=== PATIENT | female | born 1985 | race Caucasian/White ===

== ENCOUNTER 2016-07-28 18:43 | Emergency (ER) | payer OTHER ==
[2016-07-28 18:57] VITALS: BP 134/83; PULSE 92; TEMP 98.2; BMI 28.8
[2016-07-28 19:52] LABS: URINE APPEARANCE CLEAR; URINE BILIRUBIN NEGATIVE (NEGATIVE); URINE BLOOD NEGATIVE (NEGATIVE); URINE COLOR LTYELLOW; URINE GLUCOSE (UA) NEGATIVE (NEGATIVE); URINE KETONE NEGATIVE (NEGATIVE); URINE LEUK ESTERASE NEGATIVE (NEGATIVE); URINE NITRITE NEGATIVE (NEGATIVE); URINE PROTEIN NEGATIVE (NEGATIVE); URINE UROBILINOGEN NEGATIVE E.U./dl (0.2-1.0)
--- NOTE | 2016-07-28 19:53 | PDOC ---
History of Present Illness <Lidia Orosco - Last Filed: 07/28/16 22:53> - History of Present Illness Initial Comments: 07/28/16 20:24 The patient is a 30 year old female with no past medical hx who presents to the ED complaining of abdominal cramping, nausea, and dizziness for a few days. The patient reports her LMP was June 27. The patient denies any vomiting, diarrhea, fever, chills Surgical: Left ovarian cyst removal, appendectomy PCP: None <Concepción Ren - Last Filed: 07/28/16 23:00> - General Chief Complaint: Pain, Acute Stated Complaint: DIZZINESS Time Seen by Provider: 07/28/16 19:20 Past History - Past Medical History Other medical history: PATIENT DENIES PAST MEDICAL HISTORY - Surgical History Abdominal Surgery: Yes (CYST REMOVED FROM L OVARY) Appendectomy: Yes - Psycho/Social/Smoking Cessation Hx Anxiety: No Suicidal Ideation: No Smoking History: Never smoked Hx Alcohol Use: No Drug/Substance Use Hx: No <Lidia Orosco - Last Filed: 07/28/16 22:53> <Concepción Ren - Last Filed: 07/28/16 23:00> - Past Medical History Allergies/Adverse Reactions: Allergies Allergy/AdvReac Type Severity Reaction Status Date / Time No Known Allergies Allergy Verified 07/28/16 18:57 Home Medications: Ambulatory Orders NK [No Known Home Medication] 07/28/16 Review of Systems - Review of Systems Able to Perform ROS?: Yes Comments:: 07/28/16 20:25 CONSTITUTIONAL: Absent: fever, no chills, no fatigue EYES: Absent: visual changes ENT: Absent: ear pain, no sore throat CARDIOVASCULAR: Absent: chest pain, no palpitations RESPIRATORY: Absent: cough, no SOB GI: +Nausea, abdominal cramping. Absent: abdominal pain, no vomiting, no constipation, no diarrhea GENITOURINARY: Absent: dysuria, no frequency, no hematuria MUSCULOSKELETAL: Absent: back pain, no arthralgia, no myalgia SKIN: Absent: rash NEURO: +Dizziness. Absent: headache <Concepción Ren - Last Filed: 07/28/16 23:00> *Physical Exam - Vital Signs Last Vital Signs Temp Pulse Resp BP Pulse Ox 98.2 F 92 H 18 134/83 100 04/18/17 18:54 07/28/16 18:54 07/28/16 18:54 07/28/16 18:54 07/28/16 18:54 <Lidia Orosco - Last Filed: 07/28/16 22:53> - Vital Signs Last Vital Signs Temp Pulse Resp BP Pulse Ox 98.2 F 92 H 18 134/83 100 07/28/16 18:54 07/28/16 18:54 07/28/16 18:54 07/28/16 18:54 07/28/16 18:54 - Physical Exam Comments: 07/28/16 20:25 GENERAL: Well-appearing, well-nourished. No apparent distress. HEENT: Normocephalic, atraumatic. PERRL, EOM intact. CARDIOVASCULAR: Normal S1, S2. Regular rate and rhythm. PULMONARY: Clear to auscultation bilaterally. ABDOMEN: Soft, non-distended, non-tender. EXTREMITIES: Normal ROM in all four extremities. No gross deformities. SKIN: Warm, dry. No rash NEUROLOGICAL: No focal neurological deficits. <Concepción Ren - Last Filed: 07/28/16 23:00> ED Treatment Course - LABORATORY CBC & Chemistry Diagram: 07/28/16 19:54 <Lidia Orosco - Last Filed: 07/28/16 22:53> - LABORATORY CBC & Chemistry Diagram: 07/28/16 19:54 - ADDITIONAL ORDERS Additional order review: Laboratory Results 07/28/16 19:36 Urine Color Ltyellow Urine Appearance Clear Urine pH 6.0 Ur Specific [place] 1.018 Urine Protein Negative Urine Glucose (UA) Negative Urine Ketones Negative Urine Blood Negative Urine Nitrite Negative Urine Bilirubin Negative Urine Urobilinogen Negative Ur Leukocyte Esterase Negative Urine HCG, Qual Positive - RADIOLOGY Radiograph Interpretation: 07/28/16 23:00 US/TRANSVAGINAL US PREG Transvaginal sonogram Comparison studies: None Clinical history: Left adnexal pain with beta hCG 536 Last menstrual period June 27, 2016 No intrauterine gestational sac Thickened endometrial stripe 1.9 cm with normal images through the region of cervix and a small amount of free fluid in the posterior cul-de-sac Uterus measures 9 x 3 x 4 cm with no fibroids Right ovary measures 3 x 2 x 1 cm with normal Doppler flow Left ovary measures 2.4 x 1.4 x 1.6 cm with normal Doppler flow No adnexal masses identified Normal region of cervix and vagina including urinary bladder Thickened endometrium with no gestational sac identified, the possibility of an early is not excluded Impression: No intrauterine gestational sac, the possibility of ectopic is not completely excluded No adnexal masses with a small amount of free fluid in the posterior cul-de-sac No fibroids identified Reported By: Venancio Campos MD 07/28/16 2241 <Concepción Ren - Last Filed: 07/28/16 23:00> *DC/Admit/Observation/Transfer <Lidia Orosco - Last Filed: 07/28/16 22:53> - Attestations Scribe Attestion: 07/28/16 20:24 Documentation prepared by Concepción Ren, acting as associate medical director for Lidia Orosco MD/DO. <Concepción Ren - Last Filed: 07/28/16 23:00> Diagnosis at time of Disposition: Early stage of - Discharge Dispostion Disposition: HOME Condition at time of disposition: Stable - Patient Instructions Printed Discharge Instructions: DI for -- Discomforts and Remedies Additional Instructions: please have a repeat bhcg and ultrasound in 1 week
[2016-07-28 20:27] LABS: BASOPHIL 0.2 % (0-2.0); MEAN CELL VOLUME 87.7 fl (80-96); MEAN PLT VOLUME 9.5 fl (7.5-11.1); NEUTROPHILS 71.8 % (42.8-82.8); PLATELET COUNT 255 K/MM3 (134-434); RDW 14.9 % (11.6-15.6); WHITE BLOOD COUNT 13.5 K/mm3 (4.0-10.0)
== END 2016-07-28 23:19 | disposition home or self-care (01) ==
LOC: JER 18:43
DX: O26.891 Other specified pregnancy related conditions, first trimester (principal); R42 Dizziness and giddiness; Z3A.01 Less than 8 weeks gestation of pregnancy
CPT/HCPCS: 36415; 76817-TC; 81003; 84702; 84703; 85025; 86850; 86900; 86901; 99283-25

== ENCOUNTER 2016-09-06 09:55 | Emergency (ER) | payer OTHER ==
[2016-09-06 10:04] VITALS: BMI 29.4
--- NOTE | 2016-09-06 10:49 | PDOC ---
History of Present Illness - General Chief Complaint: Vaginal Bleeding Stated Complaint: VAGINAL BLEEDING, 9 WKS Time Seen by Provider: 09/06/16 10:17 History Source: Patient Exam Limitations: No Limitations - History of Present Illness Travel History: Yes Initial Comments: 09/06/16 10:38 Patient states had some mild left lower quadrant cramping yesterday that was intermittent and spontaneous resolved. Woke up this morning and noted some brown vaginal drainage on toilet tissue, and second episode to bathroom and noted some spotting of red blood but not bright red blood clots. Patient denies fever, denies exercise changes or recent trauma, is not currently working , bowels and bladder are working normally. No nausea or vomiting. Was an unplanned however couple have been trying for some years. 1 para 0, LMP was june 27 Timing/Duration: reports: getting worse Quality: reports: mild, cramping Abdominal Pain Onset Location: reports: suprapubic Pain Radiation: reports: no radiation Activities at Onset: reports: none Past History - Travel Traveled outside of the country in the last 30 days: No Close contact w/someone who was outside of country & ill: No - Past Medical History Allergies/Adverse Reactions: Allergies Allergy/AdvReac Type Severity Reaction Status Date / Time No Known Allergies Allergy Verified 09/06/16 10:01 Home Medications: Ambulatory Orders Ibuprofen [Motrin -] 600 mg PO TID #30 tablet 09/07/16 Methylergonovine Maleate [Methergine] 0.2 mg PO QID #3 tablet 09/07/16 NK [No Known Home Medication] 09/07/16 Other medical history: none - Surgical History Abdominal Surgery: Yes (CYST REMOVED FROM L OVARY) Appendectomy: Yes - Psycho/Social/Smoking Cessation Hx Anxiety: No Suicidal Ideation: No Smoking History: Never smoked Have you smoked in the past 12 months: No Information on smoking cessation initiated: No Hx Alcohol Use: No Drug/Substance Use Hx: No Substance Use Type: None Review of Systems - Review of Systems Able to Perform ROS?: Yes Is the patient limited Bengali proficient: Yes Constitutional: Yes: Symptoms Reported, See HPI, Malaise. No: Chills, Fever, Loss of Appetite HEENTM: No: Symptoms Reported Respiratory: No: Symptoms reported ABD/GI: Yes: Nausea. No: Symptoms Reported, Diarrhea Musculoskeletal: Yes: See HPI. No: Symptoms Reported Integumentary: Yes: See HPI. No: Symptoms Reported All Other Systems: Reviewed and Negative *Physical Exam - Vital Signs Last Vital Signs Temp Pulse Resp BP Pulse Ox 97.8 F 66 18 115/70 100 09/06/16 10:02 09/06/16 10:02 09/06/16 10:02 09/06/16 10:02 09/06/16 10:02 - Physical Exam General Appearance: Yes: Nourished, Appropriately Dressed, Apparent Distress HEENT: positive: [place], Normal ENT Inspection, Normal Voice, TMs Normal, Pharynx Normal Neck: positive: Supple. negative: Tender, Lymphadenopathy (R), Lymphadenopathy (L) Respiratory/Chest: positive: Lungs Clear, Normal Breath Sounds Cardiovascular: positive: Regular Rhythm, Regular Rate Female Pelvic Exam: positive: normal external exam, discharge (dark brown/red drainage noted, not profuse,) Gastrointestinal/Abdominal: positive: Normal Bowel Sounds, Soft, Tenderness ( mild suprapubic tenderness, round or guarding). negative: Tender, Guarding, Rebound Musculoskeletal: positive: Normal Inspection. negative: CVA Tenderness Extremity: positive: Normal Capillary Refill Integumentary: positive: Normal Color, Dry, Warm Neurologic: positive: braiding machine tender II-XII NML intact, Fully Oriented, Alert, Normal Mood/ Affect, Normal Response, Motor Strength 5/5 ED Treatment Course - LABORATORY CBC & Chemistry Diagram: 09/06/16 10:40 - RADIOLOGY Radiology Studies Ordered: Category Date Time Status <14WKS US [US] Stat Ultrasound 09/06/16 10:35 Ordered Progress Note - Progress Note Progress Note: Pregnancies with vaginal spotting/bleeding will perform some labs and ultrasound rule out missed AB Medical Decision Making - Medical Decision Making 09/08/16 12:18 Ultrasound reveals intrauterine yolk sac, no embryonic pole at this time. Patient was advised to follow-up with RECORDS OFFICER for repeat ultrasound and beta hCG testing as numbers were quite low for a six-week . Understands to return to emergency department for worsening bleeding, fevers, cramping or other problems. 09/08/16 12:19 *DC/Admit/Observation/Transfer Diagnosis at time of Disposition: Early stage of - Discharge Dispostion Disposition: HOME Condition at time of disposition: Stable Admit: No - Referrals Referrals: STAFF,NOT ON [Primary Care Provider] - - Patient Instructions Printed Discharge Instructions: DI for Abdominal Pain -- Early Additional Instructions: Rest, drink lots of fluids: Teas, water, soups Avoid contact with others until fevers and symptoms resolved Lots of handwashing and good hygiene Continue [id number] medications for symptomatic relief Tylenol for fever and pain Followup with private physician in one week for repeat urinalysis/reevaluation Return to emergency department for worsened symptoms, fevers, dehydration Print Language: MARTINIQUAIS - Post Discharge Activity Work/School Note: Back to Work
[2016-09-06 10:51] LABS: BASOPHIL 0.6 % (0-2.0); EOSINOPHIL 1.3 % (0-4.5); MCH 29.3 pg (25.7-33.7); MCHC 33.3 g/dl (32.0-36.0); MEAN CELL VOLUME 87.9 fl (80-96); MEAN PLT VOLUME 8.6 fl (7.5-11.1); NEUTROPHILS 70.8 % (42.8-82.8); PLATELET COUNT 249 K/MM3 (134-434); RDW 14.4 % (11.6-15.6)
[2016-09-06 10:52] LABS: URINE APPEARANCE CLEAR; URINE BILIRUBIN NEGATIVE (NEGATIVE); URINE BLOOD 2+ (NEGATIVE); URINE COLOR STRAW; URINE GLUCOSE (UA) NEGATIVE (NEGATIVE); URINE KETONE NEGATIVE (NEGATIVE); URINE LEUK ESTERASE TRACE (NEGATIVE); URINE NITRITE NEGATIVE (NEGATIVE); URINE PROTEIN NEGATIVE (NEGATIVE); URINE UROBILINOGEN NEGATIVE E.U./dl (0.2-1.0)
[2016-09-06 11:11] LABS: URINE MUCUS RARE; URINE RBC 39 /hpf (0-3); URINE WBC 2 /hpf (3-5)
[2016-09-06 14:32] VITALS: BP 108/78; PULSE 89; TEMP 98.4
== END 2016-09-06 14:32 | disposition home or self-care (01) ==
LOC: JER 09:55
DX: O26.851 Spotting complicating pregnancy, first trimester (principal); R10.2 Pelvic and perineal pain; Z3A.09 9 weeks gestation of pregnancy
CPT/HCPCS: 36415; 76801-TC; 81003; 81015; 84702; 85025; 86850; 86900; 86901; 99283-25

== ENCOUNTER 2016-09-06 22:56 | Emergency (ER) | payer OTHER ==
[2016-09-06 23:03] VITALS: BMI 29.5
--- NOTE | 2016-09-06 23:27 | PDOC ---
History of Present Illness - General History Source: Patient Exam Limitations: No Limitations - History of Present Illness Initial Comments: 09/06/16 23:59 The patient is a 31 year old female, 6 weeks (), with no significant past medical history who presents to the ED with complaints of vaginal bleeding since earlier today. The patient was recently seen in the ED earlier today for light vaginal bleeding. She states around 8 pm tonight, she started bleeding heavily. She reports large blood clots and lower quadrant pain. Denies fever or chills. Denies nausea, vomiting, or diarrhea. Denies exercise changes or recent trauma. Changes in urinary output. <Dariusz Escobedo - Last Filed: 09/06/16 23:59> <Marianna Landrum - Last Filed: 09/07/16 04:58> - General Chief Complaint: Vaginal Bleeding Stated Complaint: VAGINAL BLEED Time Seen by Provider: 09/06/16 23:26 Past History <Dariusz Escobedo - Last Filed: 09/06/16 23:59> - Surgical History Abdominal Surgery: Yes (CYST REMOVED FROM L OVARY) Appendectomy: Yes - Reproductive History (#): 1 Para: 0 - Immunization History Immunization Up to Date: Yes - Psycho/Social/Smoking Cessation Hx Anxiety: No Suicidal Ideation: No Smoking History: Never smoked Have you smoked in the past 12 months: No Information on smoking cessation initiated: No Hx Alcohol Use: No Drug/Substance Use Hx: No Substance Use Type: None <Marianna Landrum - Last Filed: 09/07/16 04:58> - Past Medical History Allergies/Adverse Reactions: Allergies Allergy/AdvReac Type Severity Reaction Status Date / Time No Known Allergies Allergy Verified 09/06/16 23:03 Home Medications: Ambulatory Orders Ibuprofen [Motrin -] 600 mg PO TID #30 tablet 09/07/16 Methylergonovine Maleate [Methergine] 0.2 mg PO QID #3 tablet 09/07/16 NK [No Known Home Medication] 09/07/16 Review of Systems - Review of Systems Able to Perform ROS?: Yes Comments:: 09/07/16 00:00 CONSTITUTIONAL: Absent: fever, chills, diaphoresis, generalized weakness, malaise, loss of appetite HEENT: Absent: rhinorrhea, nasal congestion, throat pain, throat swelling, difficulty swallowing, mouth swelling, ear pain, eye pain, visual Changes CARDIOVASCULAR: Absent: chest pain, syncope, palpitations, irregular heart rate, lightheadedness , peripheral edema RESPIRATORY: Absent: cough, shortness of breath, dyspnea with exertion, orthopnea, wheezing, stridor, hemoptysis GASTROINTESTINAL: + abdominal cramping Absent: abdominal distension, nausea, vomiting, diarrhea, constipation, melena, hematochezia GENITOURINARY: + vaginal bleeding Absent: dysuria, frequency, urgency, hesitancy, flank pain, genital pain MUSCULOSKELETAL: Absent: myalgia, arthralgia, joint swelling SKIN: Absent: rash, itching, pallor HEMATOLOGIC/IMMUNOLOGIC: Absent: easy bleeding, easy bruising, lymphadenopathy, frequent infections ENDOCRINE: Absent: unexplained weight gain, unexplained weight loss, heat intolerance, cold intolerance NEUROLOGIC: Absent: headache, focal weakness or paresthesias, dizziness, unsteady gait, seizure, mental status changes, bladder or bowel incontinence PSYCHIATRIC: Absent: anxiety, depression, suicidal or homicidal ideation, hallucinations. All Other Systems: Reviewed and Negative <Dariusz Escobedo - Last Filed: 09/06/16 23:59> *Physical Exam - Vital Signs Last Vital Signs Temp Pulse Resp BP Pulse Ox 92 H 18 122/80 99 09/06/16 22:58 09/06/16 22:58 09/06/16 22:58 09/06/16 22:58 - Physical Exam Comments: 09/07/16 00:00 GENERAL: Well developed, well nourished. Awake and alert. No acute distress. HEENT: Normocephalic, atraumatic. PERRLA, EOMI. No conjunctival pallor. Sclera are non- icteric. Moist mucous membranes. Oropharynx is clear. NECK: Supple. Full ROM. No JVD. Carotid pulses 2+ and symmetric, without bruits. No thyromegaly. NCo lymphadenopathy. CARDIOVASCULAR: Regular rate and rhythm. No murmurs, rubs, or gallops. Distal pulses are 2+ and symmetric. PULMONARY: No evidence of respiratory distress. Lungs clear to auscultation bilaterally. No wheezing, rales or rhonchi. ABDOMINAL: Soft. Non-tender. Non-distended. No rebound or guarding. No organomegaly. Normoactive bowel sounds. MUSCULOSKELETAL Normal range of motion at all joints. No bony deformities or tenderness. No CVA tenderness. EXTREMITIES: No cyanosis. No clubbing. No edema. No calf tenderness. VAGINAL: + Os is open, active bleeding with clots SKIN: Warm and dry. Normal capillary refill. No rashes. No jaundice. NEUROLOGICAL: Alert, awake, appropriate. Cranial nerves 2-12 intact. No deficits to light touch and temperature in face, upper extremities and lower extremities. No motor deficits in the in face, upper extremities and lower extremities. Normoreflexic in the upper and lower extremities. Normal speech. Toes are down- going bilaterally. Gait is normal without ataxia. PSYCHIATRIC: Cooperative. Good eye contact. Appropriate mood and affect. <Dariusz Escobedo - Last Filed: 09/06/16 23:59> - Vital Signs Last Vital Signs Temp Pulse Resp BP Pulse Ox 92 H 18 122/80 99 09/06/16 22:58 09/06/16 22:58 09/06/16 22:58 09/06/16 22:58 <Marianna Landrum - Last Filed: 09/07/16 04:58> ED Treatment Course - LABORATORY CBC & Chemistry Diagram: 09/07/16 00:10 09/07/16 00:10 <Marianna Landrum - Last Filed: 09/07/16 04:58> Medical Decision Making - Medical Decision Making 09/07/16 04:54 Pt was here earlier in the day and had a bhcg of 2000+ and was told that her vag bleeding was threatened ab. Now she returns with worsening vag bleed and clotssince 8AM. Her os is opn. Hb/ HCT stable. bhcg is down to 1000+ She is actively miscarrying. I discussed the case with acquisition marketing coordinator ham curer Edna and he wants methergine 0.2 PO now and Q6 hourly for 4 doses total. Pt is stable; she is improved in the ER with 1L NSS. I will treat with toradol and methergine first dose in the ER; she will go home with her . THey understand that pt may return for uncontrolled bleeding or feeling faint. <Marianna Landrum - Last Filed: 09/07/16 04:58> *DC/Admit/Observation/Transfer - Attestations Scribe Attestion: 09/07/16 00:00 Documentation prepared by Dariusz Escobedo, acting as medical office coordinator for Marianna Landrum MD <Dariusz Escobedo - Last Filed: 09/06/16 23:59> - Discharge Dispostion Admit: No <Marianna Landrum - Last Filed: 09/07/16 04:58> Diagnosis at time of Disposition: Miscarriage - Discharge Dispostion Disposition: HOME Condition at time of disposition: Stable - Prescriptions Prescriptions: Methylergonovine Maleate [Methergine] 0.2 mg PO QID #3 tablet Ibuprofen [Motrin -] 600 mg PO TID #30 tablet - Patient Instructions Printed Discharge Instructions: Dealing With Miscarriage, DI for Miscarriage Print Language: URDU
[2016-09-06] MEDS ORDERED: SODIUM CHLORIDE 0.9% 500 ML INFUS.BAG IV ONE (23:57)
[2016-09-07 00:28] LABS: BASOPHIL 0.6 % (0-2.0); EOSINOPHIL 1.3 % (0-4.5); MCH 28.6 pg (25.7-33.7); MCHC 32.5 g/dl (32.0-36.0); NEUTROPHILS 64.4 % (42.8-82.8); PLATELET COUNT 264 K/MM3 (134-434); RDW 14.7 % (11.6-15.6); WHITE BLOOD COUNT 13.6 K/mm3 (4.0-10.0)
[2016-09-07 00:31] LABS: INR 0.97 (0.82-1.09); PROTHROMBIN TIME (PATIENT) 10.7 SEC (9.98-11.88)
[2016-09-07 00:50] LABS: ALBUMIN 3.6 g/dl (3.4-5.0); ALK PHOS 98 U/L (45-117); ANION GAP 10 (8-16); BILIRUBIN,TOTAL 0.3 mg/dL (0.2-1.0); CO2 26 mmol/L (21-32); CREATININE 0.6 mg/dL (0.55-1.02); GLUCOSE,RANDOM 105 mg/dL (74-106); SGOT/AST 15 U/L (15-37); SGPT/ALT 21 U/L (12-78); TOT PROT 7.2 g/dl (6.4-8.2)
[2016-09-07] MEDS ORDERED: KETOROLAC TROMETHAMINE 30 MG/1 ML VIAL IVPUSH ONE (01:05)
[2016-09-07] MEDS ORDERED: METHYLERGONOVINE MALEATE 0.2 MG TABLET (FP) PO ONE (01:06)
[2016-09-07] MEDS ORDERED: METHYLERGONOVINE MALEATE 0.2 MG/1 ML AMP ONE (01:35)
[2016-09-07] MEDS ORDERED: KETOROLAC TROMETHAMINE 30 MG/1 ML VIAL ONE (01:35)
[2016-09-07 02:07] VITALS: BP 103/58; PULSE 87; TEMP 97.6
== END 2016-09-07 02:08 | disposition home or self-care (01) ==
LOC: JER 22:56
PROC: 3E0333Z Introduction of Anti-inflammatory into Peripheral Vein, Percutaneous Approach (ICD-10-PCS; principal; 2016-09-06)
DX: O02.1 Missed abortion (principal); Z3A.01 Less than 8 weeks gestation of pregnancy
CPT/HCPCS: 36415; 80053; 84702; 85025; 85610; 96374; 99282-25